=== PATIENT | female | born 1955 | race American Indian/Alaskan Native ===

== ENCOUNTER 2017-06-17 19:20 | Emergency (ER) | payer SELFPAY | END 2017-06-17 19:40 | disposition left against medical advice (07) | LOC: ED 19:20 | DX: I10 Essential (primary) hypertension (principal); Z53.21 Procedure and treatment not carried out due to patient leaving prior to being seen by health care provider ==

== ENCOUNTER 2017-06-18 10:40 | Emergency (ER) | payer OTHER ==
[2017-06-18] MEDS ORDERED: CATAPRES ONE (11:00)
--- NOTE | 2017-06-18 12:07 | Emergency Department Report ---
ED Headache HPI - General Chief Complaint: High BP Stated Complaint: HIGH BLOOD PRESSURE Time Seen by Provider: 06/18/17 11:58 Source: patient, old records - History of Present Illness Timing/Duration: 1 week (1 w hx of cold and cough; went to and her bp high and she was sent here) Quality: mild Recent Head Trauma: no recent headache/trauma Modifying Factors: improves with: medication (off bp meds). worse with: cold therapy, exposure to light, immobilization, movement, rest, other Associated Symptoms: other (hx bells 2016). denies: denies symptoms, confusion , fatigue, facial pain, fever/chills, flushing, loss of consciousness, nausea/ vomiting, nasal congestion, nasal drainage, numbness in legs/feet, rash, seizures, sinus infection, stiff neck, vision changes, weakness Allergies/Adverse Reactions: Allergies No Known Allergies Allergy (Verified 06/18/17 10:56) Home Medications: Ambulatory Orders Amlodipine Besylate [Norvasc] 5 mg PO DAILY #30 tablet 06/18/17 Hydrochlorothiazide [HCTZ] 25 mg PO QDAY #30 tablet 06/18/17 ED Review of Systems ROS: Stated complaint: HIGH BLOOD PRESSURE Other details as noted in HPI Comment: All other systems reviewed and negative Constitutional: no symptoms reported Eyes: as per HPI ENT: as per HPI Respiratory: no symptoms reported, cough Cardiovascular: as per HPI. denies: chest pain Endocrine: no symptoms reported, see HPI. denies: excessive sweating, flushing Gastrointestinal: as per HPI. denies: abdominal pain, nausea, vomiting Genitourinary: as per HPI. denies: urgency, dysuria Musculoskeletal: as per HPI. denies: back pain Skin: as per HPI. denies: rash, lesions Neurological: as per HPI, other (facial droop from bells; can close eyes). denies: headache, weakness, numbness, paresthesias, confusion, abnormal gait, vertigo Psychiatric: as per HPI Hematological/Lymphatic: as per HPI ED Past Medical Hx - Past Medical History Hx Hypertension: Yes (Non compliant with medications) Additional medical history: Moore's Palsy 2016 - Surgical History Past Surgical History?: No - Family History Family history: other (med dec old age; dad dec ? cause) - Social History Smoking Status: Never Smoker Substance Use Type: None - Medications Home Medications: Home Medications Medication Instructions Recorded Confirmed Last Taken Type Amlodipine Besylate [Norvasc] 5 mg PO DAILY #30 tablet 06/18/17 Unknown Rx Hydrochlorothiazide [HCTZ] 25 mg PO QDAY #30 tablet 06/18/17 Unknown Rx ED Physical Exam - General Limitations: No Limitations General appearance: alert, in no apparent distress - Head Head exam: Present: atraumatic - Eye Eye exam: Present: normal appearance, PERRL, EOMI Pupils: Present: normal accommodation - ENT ENT exam: Present: mucous membranes moist - Neck Neck exam: Present: normal inspection. Absent: tenderness, meningismus - Respiratory Respiratory exam: Present: normal lung sounds bilaterally. Absent: respiratory distress, wheezes, rales, rhonchi, stridor - Cardiovascular Cardiovascular Exam: Present: regular rate, normal heart sounds - GI/Abdominal GI/Abdominal exam: Present: soft, normal bowel sounds - Rectal Rectal exam: Present: deferred - Extremities Exam Extremities exam: Present: normal inspection, full ROM, normal capillary refill. Absent: tenderness, pedal edema, joint swelling - Back Exam Back exam: Present: normal inspection, full ROM. Absent: tenderness, CVA tenderness (R), CVA tenderness (L), muscle spasm, paraspinal tenderness, vertebral tenderness - Neurological Exam Neurological exam: Present: alert, oriented X3, normal gait, motor sensory deficit, reflexes normal - Psychiatric Psychiatric exam: Present: normal affect, normal mood - Skin Skin exam: Present: warm, dry, intact, normal color. Absent: rash ED Course Vital Signs 06/18/17 06/18/17 06/18/17 10:43 10:54 13:57 Temperature 98.7 F 98.4 F Pulse Rate 89 87 76 Respiratory 16 20 Rate Blood Pressure 194/106 Blood Pressure 194/106 165/95 [Left] O2 Sat by Pulse 98 98 100 Oximetry - Reevaluation(s) Reevaluation #1: 06/18/17 12:06 158/82 ct head, trop, 12 lead ordered - given her hx and l facial droop. pt states this is old but no family to confirm. need to ro cva 06/18/17 13:37 to [facility] they saw her bp and sent her here clonodine in triage bp dec now no cp no sob told htn in past but did not take rx bc she saw the side effects as being to risky ct noted 12 lead noted no pmh cva or mi labs noted cr n 12 lead no acute- Dr Chatterjee read Reevaluation #2: 06/18/17 13:[address] Chatterjee Dc home w dc poc norvasc/ hctz follow up referral pt updated and detailed instructions given neuro intact vss nad reports feeling better sitting in room writing in her journal ED Medical Decision Making - Lab Data Result diagrams: 06/18/17 Unknown 06/18/17 Unknown - EKG Data Interpretation: no acute changes - Radiology Data Radiology results: report reviewed, image reviewed - Medical Decision Making see note - Differential Diagnosis ro cva; htn a/c Critical care attestation.: If time is entered above; I have spent that time in minutes in the direct care of this critically ill patient, excluding procedure time. ED Disposition Clinical Impression: HTN (hypertension), Medical non-compliance, Cough, DJD (degenerative joint disease) Disposition: DC-01 TO HOME OR SELFCARE Is pt being admited?: No Does the pt Need Aspirin: No Condition: Stable Instructions: Chronic Hypertension (ED), DASH Eating Plan (ED), Low Sodium Diet (ED), Hypertension (ED) Additional Instructions: rest fluids meds as ordered they are available at [facility] free low salt diet no fast food drink water follow up with pcp this week return to ED for persistent elevation in bp with headache or other neurological symptoms. when you take over the counter meds - make sure you see pharmacist to take only those that are for people with high blood pressure limit caffeine see discharge information- attached here Prescriptions: Amlodipine Besylate [Norvasc] 5 mg PO DAILY #30 tablet Hydrochlorothiazide [HCTZ] 25 mg PO QDAY #30 tablet Referrals: [facility] [Outside] - 3-5 Days ROMMEL GARZA MD [Staff Physician] - 3-5 Days Forms: Work/School Release Form(ED) Time of Disposition: 13:33
--- NOTE | 2017-06-18 12:30 | XRay Report ---
CHEST TWO VIEWS: 06/18/17 10:40:00 CLINICAL: Chest pain. COMPARISON: None FINDINGS: Normal heart and pulmonary vasculature.Aortic tortuosity. The lungs are normally expanded and clear.Anterior wedge compression fractures of multiple mid thoracic vertebral bodies with no fracture lines. Exaggerated thoracic kyphosis and multilevel degenerative disc disease. IMPRESSION: No acute cardiopulmonary process. Age-indeterminate but likely old midthoracic anterior wedge compression fractures.Multilevel degenerative disc disease.
[2017-06-18 12:40] LABS: Basophils % (Auto) 0.4 % (0.0-1.8); Eosinophils % (Auto) 0.7 % (0.0-4.3); Hematocrit 41.2 % (30.3-42.9); Hemoglobin 13.3 gm/dl (10.1-14.3); Lymphocytes # (Auto) 2.3 K/mm3 (1.2-5.4); Lymphocytes % (Auto) 35.2 % (13.4-35.0); Mean Corpuscular HGB Conc 32 % (30-34); Mean Corpuscular Hemoglobin 29 pg (28-32); Mean Corpuscular Volume 88 fl (79-97); Monocytes # (Auto) 0.5 K/mm3 (0.0-0.8); Monocytes % (Auto) 6.8 % (0.0-7.3); Platelet Count 202 K/mm3 (140-440); Red Blood Count 4.66 M/mm3 (3.65-5.03); Red Cell Distribution Width 13.7 % (13.2-15.2)
[2017-06-18 12:52] LABS: Alanine Aminotransferase 16 units/L (7-56); Albumin 4.1 g/dL (3.9-5); BUN/Creatinine Ratio 14; Blood Urea Nitrogen 10 mg/dL (7-17); Calcium 9.2 mg/dL (8.4-10.2); Hemolysis Index 5
--- NOTE | 2017-06-18 13:05 | Cat Scan Report ---
CT HEAD WITHOUT CONTRAST: 06/18/17 10:40:00 CLINICAL: Headache and hypertension. Facial droop and history of Moore's palsy and 2016. TECHNIQUE: 2.5-mm noncontrast scans. COMPARISON:None FINDINGS: The ventricles and sulci are slightly large for age.Excessive bilateral paratracheal white matter hypodensities and multiple bilateral basal ganglia chronic lacunar infarcts. No suspicious focal hypodensities. No mass or mass effect. No hemorrhage, edema or extra-axial collection. Mild bilateral ethmoid and maxillary sinus mucoperiosteal thickening. No air-fluid levels. Normal orbits and soft tissues. The calvarium and skull base are intact. IMPRESSION: Mild global cortical atrophy and extensive chronic white matter microangiopathy. Multiple bilateral chronic basal ganglia acute or infarcts. No evidence of acute infarct or hemorrhage. No evidence of mass. Mild sinusitis.
[2017-06-18 13:36] LABS: INR 0.95 (0.87-1.13)
[2017-06-18 13:37] LABS: Partial Thromboplastin Time 29.5 Sec. (24.2-36.6)
[2017-06-18 13:57] VITALS: BP 165/95
== END 2017-06-18 13:57 | disposition home or self-care (01) ==
LOC: ED 10:40
DX: I10 Essential (primary) hypertension (principal); R05 Cough; M19.90 Unspecified osteoarthritis, unspecified site; Z91.14 Patient's other noncompliance with medication regimen
CPT/HCPCS: 36415; 70450; 71046; 80053; 84484; 85025; 85610; 85730; 93005; 93010; 99284

== ENCOUNTER 2018-01-01 15:42 | Emergency (ER) | payer SELFPAY ==
[2018-01-01 15:53] VITALS: BP 130/102
--- NOTE | 2018-01-01 16:17 | Emergency Department Report ---
ED Neuro Deficit HPI - General Chief Complaint: Neuro Symptoms/Deficit Stated Complaint: NEURO SYMPTOMS Time Seen by Provider: 01/01/18 16:11 Source: patient Mode of arrival: Ambulatory Limitations: No Limitations - History of Present Illness Initial Comments: Patient is a 62-year-old [place] female who is presenting with right-sided facial weakness. Patient states that this started approximately 2 weeks ago. Patient was reluctant to come to the hospital stating that she was taking some natural vitamins to see if this Moore's palsy will go away. Patient has a history of Moore's palsy in the past. Patient was urged to come to the hospital by family who saw her today and were concerned about the degree of dysfunction with a right side of her face. Patient denies any chest pain shortness of breath weakness in arms or legs ataxia nausea vomiting fever at this time. - Related Data Home Medications: Previous Rx's Medication Instructions Recorded Last Taken Type Amlodipine Besylate [Norvasc] 5 mg PO DAILY #30 tablet 06/18/17 Unknown Rx Hydrochlorothiazide [HCTZ] 25 mg PO QDAY #30 tablet 06/18/17 Unknown Rx Acyclovir [Zovirax] 400 mg PO TID #21 tablet 01/01/18 Unknown Rx Amlodipine Besylate [Norvasc] 5 mg PO DAILY #30 tablet 01/01/18 Unknown Rx Polyvinyl Alcohol [Tearfair 1%] 1 - 2 drop OP PRN #1 bottle 01/01/18 Unknown Rx Prednisone [predniSONE 10 mg 10 mg PO .TAPER #1 tab.ds.pk 01/01/18 Unknown Rx (6-Day Pack, 21 Tabs)] Allergies/Adverse Reactions: Allergies Allergy/AdvReac Type Severity Reaction Status Date / Time No Known Allergies Allergy Verified 06/18/17 10:56 ED Review of Systems ROS: Stated complaint: NEURO SYMPTOMS Other details as noted in HPI Comment: All other systems reviewed and negative ED Past Medical Hx - Past Medical History Hx Hypertension: Yes (Non compliant with medications) Additional medical history: Moore's Palsy 2016 - Social History Smoking Status: Never Smoker Substance Use Type: None - Medications Home Medications: Home Medications Medication Instructions Recorded Confirmed Last Taken Type Amlodipine Besylate [Norvasc] 5 mg PO DAILY #30 tablet 06/18/17 Unknown Rx Hydrochlorothiazide [HCTZ] 25 mg PO QDAY #30 tablet 06/18/17 Unknown Rx Acyclovir [Zovirax] 400 mg PO TID #21 tablet 01/01/18 Unknown Rx Amlodipine Besylate [Norvasc] 5 mg PO DAILY #30 tablet 01/01/18 Unknown Rx Polyvinyl Alcohol [Tearfair 1%] 1 - 2 drop OP PRN #1 bottle 01/01/18 Unknown Rx Prednisone [predniSONE 10 mg 10 mg PO .TAPER #1 tab.ds.pk 01/01/18 Unknown Rx (6-Day Pack, 21 Tabs)] ED Neuro Physical Exam - General Limitations: No Limitations General appearance: alert, in no apparent distress Suspected Stroke: No - Head Head exam: Present: atraumatic, normocephalic - Eye Eye exam: Present: normal appearance - ENT ENT exam: Present: mucous membranes moist - Neck Neck exam: Present: normal inspection - Respiratory Respiratory exam: Present: normal lung sounds bilaterally. Absent: respiratory distress, wheezes, rales, rhonchi - Cardiovascular Cardiovascular Exam: Present: regular rate, normal rhythm. Absent: systolic murmur, diastolic murmur, rubs, gallop - GI/Abdominal GI/Abdominal exam: Present: soft, normal bowel sounds. Absent: distended, tenderness, guarding - Extremities Exam Extremities exam: Present: normal inspection - Back Exam Back exam: Present: normal inspection - Neurological Exam Neurological exam: Present: alert, oriented X3, normal gait, reflexes normal. 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 Level of Consciousness: alert 1b. LOC Questions: answers correctly 1c. LOC Commands: performs tasks correctly 2. Best Gaze: normal 3. Visual: no visual loss 4. Facial Palsy: complete paralysis 5b. Motor Arm Right: no drift 5a. Motor Arm Left: no drift 6a. Motor Leg Left: no drift 6b. Motor Leg Right: no drift 7. Limb Ataxia: absent 8. Sensory: normal 9. Best Language: no aphasia 10. Dysarthria: normal 11. Extinction/Inattention: no abnormality Total Score: 3 Stroke Severity: Minor Stroke - Psychiatric Psychiatric exam: Present: normal affect, normal mood - Skin Skin exam: Present: warm, dry, intact, normal color. Absent: rash ED Course Vital Signs 01/01/18 15:47 Temperature 97.6 F Pulse Rate 75 Respiratory 16 Rate Blood Pressure 130/102 O2 Sat by Pulse 98 Oximetry - Lab Data Lab Results 01/01/18 Range/Units 16:01 POC Glucose 123 H (70-105) - Medical Decision Making Patient will be placed on steroids and activity viral for her Moore's palsy. Patient also restart on blood pressure meds patient is been noncompliant with medications. She'll discharged home. Critical care attestation.: If time is entered above; I have spent that time in minutes in the direct care of this critically ill patient, excluding procedure time. ED Disposition Clinical Impression: Moore palsy, Hypertensive urgency Disposition: - TO HOME OR SELFCARE Is pt being admited?: No Does the pt Need Aspirin: No Condition: Stable Instructions: Hypertension (ED), Moore Palsy (ED) Prescriptions: Acyclovir [Zovirax] 400 mg PO TID #21 tablet Amlodipine Besylate [Norvasc] 5 mg PO DAILY #30 tablet Polyvinyl Alcohol [Tearfair 1%] 1 - 2 drop OP PRN #1 bottle Prednisone [predniSONE 10 mg (6-Day Pack, 21 Tabs)] 10 mg PO .TAPER #1 tab.ds.pk Referrals[facility] [Outside] - 3-5 Days
== END 2018-01-01 17:36 | disposition home or self-care (01) ==
LOC: ED 15:42
DX: G51.0 Bell's palsy (principal); I16.0 Hypertensive urgency; I10 Essential (primary) hypertension
CPT/HCPCS: 82962; 93005; 93010; 99283